=== PATIENT | male | born 1960 | race Caucasian/White ===

== ENCOUNTER 2020-08-31 10:56 | Inpatient (IN) ==
[2020-08-31 11:51] LABS: ABS Basophils 0.1 10^3/ul (0-0.2); ABS Lymphocytes 2.6 10^3/ul (1.0-4.8); ABS Monocytes 0.6 10^3/ul (0-0.8); ABS Neutrophils 10.5 10^3/ul (1.5-7.7); Eosinophil % 0.1 %; Hematocrit 48 % (42-52); Hemoglobin 16.3 g/dL (14.0-18.0); Lymphocyte % 19.1 %; Mean Corpuscular HGB Conc 34 g/dL (31-36); Mean Corpuscular Hemoglobin 31 pg (27-31); Mean Corpuscular Volume 91 fL (80-94); Mean Platelet Volume 9.3 fL (7.4-10.4); Platelet Count 208 10^3/uL (150-450); Red Blood Count 5.27 10^6 /uL (4.18-5.48); Red Cell Distribution Width 13 % (10-15); White Blood Count 13.8 10^3/uL (3.5-10.8)
[2020-08-31 12:01] LABS: Albumin 4.3 g/dL (3.2-5.2); Albumin/Globulin Ratio 1.5 (1-3); BUN/Creatinine Ratio 19.4 (8-20); C Reactive Protein 4.42 mg/L (<8.01); Calcium 9.7 mg/dL (8.6-10.3); EGFR African American 100.3 (>60); EGFR Non-African American 82.9 (>60); Globulin 2.9 g/dL (2-4); Magnesium 1.7 mg/dL (1.9-2.7); Potassium 4.3 mmol/L (3.5-5.0); Total Bilirubin 0.5 mg/dL (0.2-1.0); Total Protein 7.2 g/dL (6.4-8.9)
[2020-08-31] MEDS ORDERED: Ondansetron 4 mg VIAL 2 MG/ML 2 ml VIAL IV ONE (12:01)
[2020-08-31] MEDS ORDERED: Morphine 4 MG/ML VIAL (1 ml) IV ONE ×2 (12:01→14:20)
[2020-08-31] MEDS ORDERED: NS 0.9% 1000 ml BAG 1,000 ML IV ONE (12:14)
[2020-08-31] MEDS ORDERED: Iohexol 300 (CONTRAST) 10 ML SDV IV ONE (12:28)
[2020-08-31] MEDS ORDERED: Ciprofloxacin 400mg IVPREMIX 400 MG/200 ML BAG IVPB ONE (14:20)
[2020-08-31] MEDS ORDERED: metroNIDAZOLE IV 500 MG/100ML 500 MG/100 ML BAG IVPB ONE (14:21)
[2020-08-31 14:49] LABS: Urine Appearance Clear; Urine Bilirubin Negative (Negative); Urine Blood Negative (Negative); Urine Color Yellow; Urine Glucose Negative (Negative); Urine Ketones Negative (Negative); Urine Nitrite Negative (Negative); Urine Protein Negative (Negative); Urine Specific Gravity 1.043 (1.010-1.030); Urine Urobilinogen Negative (Negative)
[2020-08-31] MEDS ORDERED: Ondansetron 4 mg VIAL 2 MG/ML 2 ml VIAL IV PRN (15:11)
[2020-08-31] MEDS ORDERED: Al Hydrox/Mg Hydrox/Simet LIQ 30 ML UDC PO PRN (15:11)
[2020-08-31] MEDS ORDERED: Magnesium Sulfate 2 gm BAG 2 GM/50 ML BAG IVPB ONE (15:17)
[2020-08-31] MEDS ORDERED: Zosyn per Pharmacy NOTE FOLLOW UP SCH (16:00)
[2020-08-31] MEDS ORDERED: NS 0.9% 1000 ml BAG 400 ML IV SCH (16:15)
[2020-08-31] MEDS: hydrALAZINE 20 mg/ml 1 ML Vial IV IV SLOW PU PRN (19:43)
[2020-08-31] MEDS ORDERED: Piperacillin/Tazobac ADVAN 3.375 GM in NS 0.9% 100 ml BAG 100 ML IV ONE (20:00)
[2020-08-31] MEDS: Heparin 5000 UNITS/ML 1 mL VIAL SUBCUT SCH (20:39)
[2020-08-31] MEDS ORDERED: Ticagrelor 60 mg TAB (NF) PO SCH (21:00)
[2020-08-31] MEDS ORDERED: hydrALAZINE 20 mg/ml 1 ML Vial IV IV SLOW PU ONE ×2 (21:34→22:44)
[2020-09-01] MEDS: ZOSYN 3.375 GM Q8H per EXTENDED INFUSION IV SCH ×3 (00:36→16:48)
[2020-09-01] MEDS: Heparin 5000 UNITS/ML 1 mL VIAL SUBCUT SCH ×3 (05:32→20:04)
[2020-09-01] MEDS: Aspirin EC 81 mg TAB.EC (enteric coated) PO SCH ×2 (08:48→10:02)
[2020-09-01] MEDS: CMC:Ticagrelor 60 mg TAB (NF) PO SCH ×2 (08:48→10:02)
[2020-09-01] MEDS: Pantoprazole VIAL 40 MG VIAL IV SCH (10:02)
[2020-09-01] MEDS ORDERED: PEG 3000 GI LAVAGE 1 GALLON PO ONE (12:53)
[2020-09-01] MEDS: hydrALAZINE 20 mg/ml 1 ML Vial IV IV SLOW PU PRN (19:56)
[2020-09-02] MEDS: ZOSYN 3.375 GM Q8H per EXTENDED INFUSION IV SCH ×2 (00:39→07:35)
[2020-09-02] MEDS: Heparin 5000 UNITS/ML 1 mL VIAL SUBCUT SCH ×2 (04:14→13:54)
[2020-09-02 06:12] LABS: ABS Eosinophils 0.2 10^3/ul (0-0.6); ABS Lymphocytes 2.5 10^3/ul (1.0-4.8); ABS Monocytes 0.5 10^3/ul (0-0.8); ABS Neutrophils 3.8 10^3/ul (1.5-7.7); Eosinophil % 2.4 %; Hematocrit 43 % (42-52); Hemoglobin 14.4 g/dL (14.0-18.0); Lymphocyte % 35.6 %; Mean Corpuscular HGB Conc 34 g/dL (31-36); Mean Corpuscular Hemoglobin 31 pg (27-31); Mean Corpuscular Volume 92 fL (80-94); Mean Platelet Volume 9.3 fL (7.4-10.4); Platelet Count 158 10^3/uL (150-450); Red Blood Count 4.65 10^6 /uL (4.18-5.48); Red Cell Distribution Width 14 % (10-15)
[2020-09-02 06:27] LABS: C Reactive Protein 48.33 mg/L (<8.01)
[2020-09-02 06:50] LABS: Calcium 8.8 mg/dL (8.6-10.3); EGFR African American 85.3 (>60); EGFR Non-African American 70.5 (>60)
[2020-09-02] MEDS: Aspirin EC 81 mg TAB.EC (enteric coated) PO SCH (08:55)
[2020-09-02] MEDS: Pantoprazole VIAL 40 MG VIAL IV SCH (08:56)
[2020-09-02] MEDS ORDERED: Midazolam 10 mg/10 ml VIAL 1 mg/ml 10 ml VIAL (10 mg) ONE (10:24)
[2020-09-02] MEDS ORDERED: fentaNYL 100 mcg/2 ml 50 MCG/ML VIAL ONE (10:24)
[2020-09-02 14:42] VITALS: BP 147/76
== END 2020-09-02 15:45 | disposition home or self-care (01) | DRG 389 ==
LOC: ED 10:56 → MED 15:11 → ED 17:13
PROVIDERS: ADMIT Internal Medicine; ATTEND Internal Medicine